=== PATIENT | male | born 1955 | race American Indian/Alaskan Native ===

== ENCOUNTER 2017-07-24 11:30 | Emergency (ER) | payer OTHER ==
--- NOTE | 2017-07-24 12:38 | Emergency Department Report ---
Chief Complaint: Abdominal Pain Stated Complaint: ABDOMINAL PAIN Time Seen by Provider: 07/24/17 12:38 - HPI History of Present Illness: Patient here reports abdominal pain that started at 4 AM this morning and 9 out of 10. Patient is bent over retching. He states that he has a history of ileostomy from where he had diverticulitis in the past and he is scheduled for reversal and . Patient said he ate some food that had walnuts in it. And that he drank a lot of alcohol yesterday. Reports nausea and says that he started vomiting when he was in the triage room. Denies any fever but reported chills. Denies any urinary burning frequency or urgency. Pain is generalized. Patient colorectal surgeon is Dr. Joy at [facility]. He denies any bloody stools or diarrhea. - ROS Review of Systems: All systems are negative unless stated in HPI above - Exam Vital Signs: Vital Signs 07/24/17 12:12 Temperature 97.8 F Pulse Rate 62 Respiratory 16 Rate Blood Pressure 119/77 O2 Sat by Pulse 98 Oximetry Physical Exam: Gen.: This is a 62-year-old male that is nontoxic in appearance but he is bent over which can with emesis bag and right chin. Abdomen: Distended, no rigidity. Positive ileostomy bag. Audible bowel sounds. Tender to palpate. MSE screening note: Focused history and physical exam performed. Due to findings the following was ordered: Patient to be given Toradol 60 mg IM and Zofran 8 mg IM in triage area. ED Medical Decision Making - Medical Decision Making MDM: Patient screened by provider in triage area. Appropriate protocol initiated and patient to be seen in main ED by ED Disposition for MSE Condition: Stable
[2017-07-24] MEDS ORDERED: ZOFRAN IM ONE (12:39)
[2017-07-24] MEDS ORDERED: TORADOL IM ONE (12:40)
[2017-07-24 13:19] LABS: Basophils % (Auto) 0.3 % (0.0-1.8); Eosinophils % (Auto) 0.2 % (0.0-4.3); Hematocrit 44.3 % (35.5-45.6); Hemoglobin 14.4 gm/dl (11.8-15.2); Mean Corpuscular HGB Conc 33 % (32-34); Mean Corpuscular Hemoglobin 34 pg (28-32); Mean Corpuscular Volume 103 fl (84-94); Platelet Count 255 K/mm3 (140-440); Red Blood Count 4.31 M/mm3 (3.65-5.03); White Blood Count 12.9 K/mm3 (4.5-11.0)
[2017-07-24 15:58] LABS: Alanine Aminotransferase 17 units/L (7-56); Albumin 5.2 g/dL (3.9-5); Albumin/Globulin Ratio 1.3 %; Alkaline Phosphatase 110 units/L (35-129); Anion Gap 26 mmol/L; BUN/Creatinine Ratio 18; Blood Urea Nitrogen 25 mg/dL (9-20); Calcium 10.5 mg/dL (8.4-10.2); Carbon Dioxide 24 mmol/L (22-30); Chloride 92.9 mmol/L (98-107); Glucose 119 mg/dL (75-100); Lipase 21 units/L (13-60); Potassium 4.4 mmol/L (3.6-5.0); Sodium 138 mmol/L (137-145); Total Protein 9.2 g/dL (6.3-8.2)
[2017-07-24 17:37] LABS: Bacteria,Urine 1+ /HPF (Negative); Bilirubin,Urine NEG (Negative); Blood,Urine MOD (Negative); Ketones,Urine NEG (Negative); Leukocyte Esterase,Urine MOD (Negative); Mucus,Urine 3+ /HPF; Nitrite,Urine NEG (Negative); Urobilinogen,Urine < 2.0 mg/dL (<2.0)
--- NOTE | 2017-07-24 17:40 | Emergency Department Report ---
ED Abdominal Pain HPI - General Chief Complaint: Abdominal Pain Stated Complaint: ABDOMINAL PAIN Time Seen by Provider: 07/24/17 12:38 Source: patient, EMS Mode of arrival: Ambulatory Limitations: No Limitations - History of Present Illness Initial Comments: 62 YO MALE WITH ILEOSTOMY SECONDARY TO DIVERTICULITIS IS C/O DIFFUSE ABDOMINAL PAIN WHEN HE BEGAN AT 0440 THIS MORNING. PT AT 2 BROWNIES WITH WALNUTS AND DRANK LOTS OF ALCOHOL AND NOW IS NAUSEATED, VOMITING AND SUFFERING ABDOMINAL PAIN. HE HAS A ILEOSTOMY REVERSAL SCHEDULED FOR SUNDAY OF THIS WEEK WITH DR PAZ AT [facility] . HE WAS GIVEN TORADOL AND ZOFRAN IN TRIAGE UNPON ARRIVAL MD Complaint: abdominal pain -: Sudden, hour(s) (12) Location: diffuse Migration to: no migration Severity scale (0 -10): 10 Quality: cramping, sharp Consistency: constant Improves With: medication (TORADOL AND ZOFRAN) Worsens With: nothing - Related Data Allergies Allergy/AdvReac Type Severity Reaction Status Date / Time No Known Allergies Allergy Unverified 07/24/17 12:12 ED Review of Systems ROS: Stated complaint: ABDOMINAL PAIN Other details as noted in HPI Constitutional: denies: chills, fever Eyes: denies: eye pain, eye discharge, vision change ENT: denies: ear pain, throat pain Respiratory: denies: cough, shortness of breath, wheezing Cardiovascular: denies: chest pain, palpitations Endocrine: no symptoms reported Gastrointestinal: nausea. denies: diarrhea Genitourinary: denies: urgency, dysuria Musculoskeletal: denies: back pain, joint swelling, arthralgia Skin: denies: rash, lesions Neurological: denies: headache, weakness, paresthesias Psychiatric: denies: anxiety, depression Hematological/Lymphatic: denies: easy bleeding, easy bruising ED Past Medical Hx - Past Medical History Previous Medical History?: Yes Additional medical history: diverticulitis - Surgical History Additional Surgical History: colon surgery with ileostomy - Social History Smoking Status: Current Every Day Smoker Substance Use Type: Alcohol ED Physical Exam - General Limitations: No Limitations General appearance: alert, in distress (NAUSEATED AND VOMITING) - Head Head exam: Present: atraumatic, normocephalic - Eye Eye exam: Present: normal appearance, EOMI - ENT ENT exam: Present: mucous membranes moist - Neck Neck exam: Present: normal inspection, full ROM - Respiratory Respiratory exam: Present: normal lung sounds bilaterally. Absent: respiratory distress, wheezes, rales, rhonchi - Cardiovascular Cardiovascular Exam: Present: regular rate, normal rhythm. Absent: systolic murmur, diastolic murmur, rubs, gallop - GI/Abdominal GI/Abdominal exam: Present: soft, tenderness (ACROSS ABDOMEN ), guarding, normal bowel sounds. Absent: rebound, rigid - Rectal Rectal exam: Present: deferred - Extremities Exam Extremities exam: Present: normal inspection, full ROM - Back Exam Back exam: Present: normal inspection, full ROM - Neurological Exam Neurological exam: Present: alert, oriented X3, CN II-XII intact - Psychiatric Psychiatric exam: Present: normal affect, normal mood - Skin Skin exam: Present: warm, dry, intact, normal color. Absent: rash ED Course Vital Signs 07/24/17 12:12 Temperature 97.8 F Pulse Rate 62 Respiratory 16 Rate Blood Pressure 119/77 O2 Sat by Pulse 98 Oximetry ED Medical Decision Making - Lab Data Result diagrams: 07/24/17 12:53 07/24/17 15:15 - Radiology Data Radiology results: report reviewed (CT ABD/PELVIS:CLOSED LOOP SMALL BOWEL OBSTRUCTION, SMALL FLUID SURROUNDING TH BOWEL LOOPS WITHIN THE LEFT LOWER QUADRANT STOMA/ 5MM CALCULUS IN THE LEFT HEMIPELVIS, LEFT NONOBSTRUCTING RENAL CALCULUS,LEFT RENAL CYSTS,CHOLILITHIASIS, PROSTATIC HYPERTROPHY) Critical Care Time: Yes Critical care time in (mins) excluding proc time.: 60 Critical care attestation.: If time is entered above; I have spent that time in minutes in the direct care of this critically ill patient, excluding procedure time. KEIRA Critical Care Time: 60 MIN ED Disposition Clinical Impression: Small bowel obstruction, Nephrolithiasis, Liver cyst, Prostate hypertrophy Abdominal pain Qualifiers: Abdominal location: generalized Qualified Code(s): R10.84 - Generalized abdominal pain Disposition: DC/TX-70 ANOTHER TYPE HLTHCARE Is pt being admited?: Yes Does the pt Need Aspirin: No Condition: Stable Referrals: PRIMARY CARE,MD [Primary Care Provider] - 3-5 Days Time of Disposition: 18:08 (DR COOLEY HAS ACCEPTED THE PT AT [facility])
--- NOTE | 2017-07-24 17:50 | Cat Scan Report ---
FINAL REPORT EXAM: CT ABDOMEN PELVIS W CON HISTORY: abdominal pain, N/V, distention. TECHNIQUE: CT of the abdomen and pelvis was performed after the administration of intravenous contrast. Subsequently, CT of the abdomen and pelvis was performed in the delayed phase. Reconstructions were included in the coronal and sagittal planes. PRIORS: None. FINDINGS: Lower thorax: The lung bases are clear. The visualized portions of the heart are normal. Liver: The liver is normal in attenuation. No intrahepatic biliary duct dilation. Simple right hepatic cyst is seen. Gallbladder/ biliary system: Cholelithiasis seen. No gallbladder wall thickening or pericholecystic fluid. The common bile duct appears nondilated. Spleen: No splenic lesions are seen. Pancreas: No pancreatic lesions are seen. No pancreatic duct dilation. Kidneys: Several simple and probable simple left renal cysts are seen. A 7 millimeter calculus is seen in interpolar region of the left kidney. 5 millimeter calculus is seen in the region of the left distal ureter. No hydroureteronephrosis. Adrenal glands: No adrenal masses. Vasculature: The abdominal and pelvic vasculature is patent without variant anatomy. Lymph nodes: No enlarged lymph nodes are seen in the abdomen or pelvis. Bowel, mesentery, peritoneum: Prior partial bowel resection is seen. There appears to be a closed loop bowel obstruction, likely involving mid jejunum/ileum. One of the transition zones is seen within the mid abdomen, series 3, image 95. The other transition zone may be in the left lower abdominal quadrant. The bowel leading up to the left lower quadrant stoma is normal in caliber. A small amount of fluid is seen surrounding bowel loops in the left lower quadrant stoma. No pneumatosis. No free air. The appendix is not seen. No colonic diverticulosis. No bowel wall thickening. Urinary bladder: Urinary bladder is decompressed. Pelvis: Prostatic hypertrophy is noted. Abdominal wall: Small fat containing right inguinal hernia is seen. Bones: Degenerative changes are seen in the spine. 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 IMPRESSION: 1. Findings concerning for closed loop small-bowel obstruction. Findings were discussed with Dr. Jasso at 2:39 p.m. [facility] on 07/24/2017. 2. Small amount of fluid surrounding the bowel loops within the left lower quadrant stoma. 3. 5 millimeter calculus in the left hemipelvis which is inseparable from the left distal ureter may represent a distal ureteral calcification versus phlebolith. No hydroureteronephrosis. 4. Additional nonobstructing left renal calculus. 5. Simple left renal cysts. 6. Simple right hepatic cyst. 7. Cholelithiasis. 8. Prostatic hypertrophy.
[2017-07-24] MEDS ORDERED: MORPHINE IV ONE (18:55)
[2017-07-24] MEDS ORDERED: MORPHINE ONE (18:58)
[2017-07-24 19:41] VITALS: BP 118/82
== END 2017-07-24 20:39 | disposition other institution (70) ==
LOC: ED 11:30
DX: N40.0 Benign prostatic hyperplasia without lower urinary tract symptoms (principal); K56.699 Other intestinal obstruction unspecified as to partial versus complete obstruction; N20.0 Calculus of kidney; F17.200 Nicotine dependence, unspecified, uncomplicated; K57.92 Diverticulitis of intestine, part unspecified, without perforation or abscess without bleeding
CPT/HCPCS: 36415; 74177; 80053; 81001; 83690; 85025; 96372; 96374; 99291; J1885; J2270; J2405; Q9967

== ENCOUNTER 2017-09-17 23:04 | Emergency (ER) | payer OTHER ==
[2017-09-18 00:50] LABS: Basophils % (Auto) 0.6 % (0.0-1.8); Eosinophils % (Auto) 0.5 % (0.0-4.3); Hematocrit 35.8 % (35.5-45.6); Hemoglobin 12.2 gm/dl (11.8-15.2); Mean Corpuscular HGB Conc 34 % (32-34); Mean Corpuscular Hemoglobin 34 pg (28-32); Mean Corpuscular Volume 101 fl (84-94); Monocytes # (Auto) 0.6 K/mm3 (0.0-0.8); Monocytes % (Auto) 12.9 % (0.0-7.3); Platelet Count 162 K/mm3 (140-440); Red Blood Count 3.56 M/mm3 (3.65-5.03); Red Cell Distribution Width 17.8 % (13.2-15.2)
[2017-09-18 01:13] LABS: Alanine Aminotransferase 33 units/L (7-56); Albumin 4.1 g/dL (3.9-5); BUN/Creatinine Ratio 14; Blood Urea Nitrogen 11 mg/dL (9-20); Calcium 8.9 mg/dL (8.4-10.2); Hemolysis Index 8
[2017-09-18 01:54] LABS: Bilirubin,Urine SM (Negative); Blood,Urine MOD (Negative); Color,Urine Amber (Yellow); Hyaline Casts,Urine 2 /LPF; Mucus,Urine 3+ /HPF; Nitrite,Urine NEG (Negative)
[2017-09-18 02:24] LABS: Ictotest,Urine Negative (Negative)
[2017-09-18] MEDS ORDERED: K-DUR PO ONE (04:53)
--- NOTE | 2017-09-18 04:55 | Emergency Department Report ---
ED General Adult HPI - General Chief complaint: Abdominal Pain Stated complaint: BLOOD IN STOOL/DIARRHEA Time Seen by Provider: 09/18/17 04:29 Source: patient Mode of arrival: Ambulatory Limitations: No Limitations - History of Present Illness Initial comments: This is a 62-year-old male who was previously unknown to this provider, patient presents to the ER with a complaint of painless diarrhea. He describes 15 episodes of green brown stool within the past day. He denies headache, neck pain, chest pain, abdominal pain, shortness of breath, bright red blood per emesis. He admits to wiping so much with toilet paper that he has some brown stool that is flecked with blood. No recent antibiotic use, no recent travel history. No recent sick contacts. Patient is adamant that he is not having abdominal pain. No exacerbating or relieving factors. -: Gradual Radiation: non-radiation Consistency: constant Improves with: none Worsens with: none Associated Symptoms: denies: confusion, chest pain, cough, diaphoresis, fever/ chills, headaches, loss of appetite, malaise, nausea/vomiting, rash, seizure, shortness of breath, syncope, weakness - Related Data Previous Rx's Medication Instructions Recorded Last Taken Type Potassium Chloride 20 meq PO BID #14 packet 09/18/17 Unknown Rx Allergies Allergy/AdvReac Type Severity Reaction Status Date / Time No Known Allergies Allergy Unverified 07/24/17 12:12 ED Review of Systems ROS: Stated complaint: BLOOD IN STOOL/DIARRHEA Other details as noted in HPI ED Past Medical Hx - Past Medical History Previous Medical History?: Yes Additional medical history: diverticulitis - Surgical History Past Surgical History?: Yes Additional Surgical History: colon surgery with ileostomy - Social History Smoking Status: Current Every Day Smoker Substance Use Type: Alcohol - Medications Home Medications: Home Medications Medication Instructions Recorded Confirmed Last Taken Type Potassium Chloride 20 meq PO BID #14 packet 09/18/17 Unknown Rx ED Physical Exam - General Limitations: No Limitations General appearance: alert, in no apparent distress - Head Head exam: Present: atraumatic, normocephalic - Eye Eye exam: Present: normal appearance, EOMI. Absent: nystagmus - ENT ENT exam: Present: normal exam, normal orophraynx, mucous membranes moist, normal external ear exam - Neck Neck exam: Present: normal inspection, full ROM - Respiratory Respiratory exam: Present: normal lung sounds bilaterally. Absent: respiratory distress - Cardiovascular Cardiovascular Exam: Present: regular rate, normal rhythm, normal heart sounds. Absent: systolic murmur, diastolic murmur, rubs, gallop - GI/Abdominal GI/Abdominal exam: Present: soft, normal bowel sounds. Absent: distended, tenderness, guarding, rebound, rigid, pulsatile mass - Rectal Rectal exam: Present: normal inspection, other (no obvious blood on external exam, no obvious fissure) - Extremities Exam Extremities exam: Present: normal inspection, full ROM, normal capillary refill. Absent: tenderness, pedal edema, joint swelling, calf tenderness - Back Exam Back exam: Present: normal inspection, full ROM. Absent: tenderness, CVA tenderness (R), paraspinal tenderness, vertebral tenderness - Neurological Exam Neurological exam: Present: alert, oriented X3, CN II-XII intact, normal gait, other (Extraocular movements intact. Tongue midline. No facial droop. Facial sensation intact to light touch in the V1, V2, V3 distribution bilaterally. 5 and 5 strength in 4 extremities.. Sensation is intact to light touch in 4 extremities.). Absent: motor sensory deficit - Psychiatric Psychiatric exam: Present: normal affect, normal mood - Skin Skin exam: Present: warm, dry, intact, normal color. Absent: rash ED Course Vital Signs 09/18/17 09/18/17 00:08 00:16 Temperature 98.3 F 98.3 F Pulse Rate 77 81 Respiratory 16 Rate Blood Pressure 130/94 130/94 O2 Sat by Pulse 99 99 Oximetry ED Medical Decision Making - Lab Data Result diagrams: 09/18/17 00:33 09/18/17 00:33 Vital Signs 09/18/17 09/18/17 00:08 00:16 Temperature 98.3 F 98.3 F Pulse Rate 77 81 Respiratory 16 Rate Blood Pressure 130/94 130/94 O2 Sat by Pulse 99 99 Oximetry Lab Results 09/18/17 09/18/17 09/18/17 Range/Units 00:33 00:33 Unknown WBC 4.5 (4.5-11.0) K/mm3 RBC 3.56 L (3.65-5.03) M/mm3 Hgb 12.2 (11.8-15.2) gm/dl Hct 35.8 (35.5-45.6) % MCV 101 H (84-94) fl MCH 34 H (28-32) pg MCHC 34 (32-34) % RDW 17.8 H (13.2-15.2) % Plt Count 162 (140-440) K/mm3 Lymph % (Auto) 23.0 (13.4-35.0) % [place] % (Auto) 12.9 H (0.0-7.3) % Eos % (Auto) 0.5 (0.0-4.3) % Baso % (Auto) 0.6 (0.0-1.8) % Lymph # 1.0 L (1.2-5.4) K/mm3 [place] # 0.6 (0.0-0.8) K/mm3 Eos # 0.0 (0.0-0.4) K/mm3 Baso # 0.0 (0.0-0.1) K/mm3 Seg Neutrophils % 63.0 (40.0-70.0) % Seg Neutrophils # 2.8 (1.8-7.7) K/mm3 Sodium 141 (137-145) mmol/L Potassium 3.1 L (3.6-5.0) mmol/L Chloride 97.6 L (98-107) mmol/L Carbon Dioxide 26 (22-30) mmol/L Anion Gap 21 mmol/L BUN 11 (9-20) mg/dL Creatinine 0.8 (0.8-1.5) mg/dL Estimated GFR > 60 ml/min BUN/Creatinine Ratio 14 % Glucose 103 H (75-100) mg/dL Calcium 8.9 (8.4-10.2) mg/dL Total Bilirubin 1.20 (0.1-1.2) mg/dL AST 56 H (5-40) units/L ALT 33 (7-56) units/L Alkaline Phosphatase 102 (35-129) units/L Total Protein 7.6 (6.3-8.2) g/dL Albumin 4.1 (3.9-5) g/dL Albumin/Globulin Ratio 1.2 % Urine Color Odette (Yellow) Urine Turbidity Clear (Clear) Urine pH 5.0 (5.0-7.0) Ur Specific [place] 1.028 (1.003-1.030) Urine Protein 100 mg/dl (Negative) mg/dL Urine Glucose (UA) Neg (Negative) mg/dL Urine Ketones Tr (Negative) mg/dL Urine Blood Mod (Negative) Urine Nitrite Neg (Negative) Urine Bilirubin Sm (Negative) Urine Ictotest Negative (Negative) Urine Urobilinogen 4.0 (<2.0) mg/dL Ur Leukocyte Esterase Neg (Negative) Urine WBC (Auto) 2.0 (0.0-6.0) /HPF Urine RBC (Auto) 3.0 (0.0-6.0) /HPF U Epithel Cells (Auto) 1.0 (0-13.0) /HPF Hyaline Casts 2 /LPF Urine Mucus 3+ /HPF - Medical Decision Making Differential diagnosis, including but not limited to: Diarrhea, electrolyte derangement Assessment and plan: 62-year-old male with a complaint of painless diarrhea. He is afebrile with reassuring vital signs has no abdominal tenderness, hemodynamically stable, tolerating oral feeds, has appropriate bowel sounds, patient has no risk factors for C. difficile. He is found to be incidentally hypokalemic. Patient's potassium will be repleted, he can follow-up in outpatient primary care doctor for diarrhea. Critical care attestation.: If time is entered above; I have spent that time in minutes in the direct care of this critically ill patient, excluding procedure time. ED Disposition Clinical Impression: Diarrhea, Hypokalemia Disposition: DC-01 TO HOME OR SELFCARE Is pt being admited?: No Does the pt Need Aspirin: No Condition: Stable Instructions: Acute Diarrhea (ED) Additional Instructions: Drink plenty of fluids. Advance diet as tolerated. Cultures were sent today, results will be available in the next 3-5 days. Have your primary care doctor contact the medical records departments to obtain stool sample results. Follow up with the primary care doctor within the next 2-3 weeks. Take the potassium supplementation as directed. Return to the ER right away with fevers, chills, lethargy, irritability, projectile vomiting, confusion, inability to tolerate liquid feeds, bright red blood per rectum, lightheadedness, shortness of breath. Referrals: PRIMARY CARE, [Primary Care Provider] - 3-5 Days SURJIT GA MD [Staff Physician] - 3-5 Days MAURICE RAPP MD [Staff Physician] - 3-5 Days
[2017-09-18 05:05] VITALS: BP 124/73
== END 2017-09-18 05:44 | disposition home or self-care (01) ==
LOC: ED 23:04
DX: E87.6 Hypokalemia (principal); R19.7 Diarrhea, unspecified; F17.200 Nicotine dependence, unspecified, uncomplicated
CPT/HCPCS: 36415; 80053; 81001; 85025; 87324; 99283